=== PATIENT | female | born 1930 | race Caucasian/White ===

== ENCOUNTER 2017-04-19 23:33 | Emergency (ER) | payer MEDICARE ==
--- NOTE | 2017-04-20 00:24 | EDM.PDOC ---
ED HPI GENERAL MEDICAL PROBLEM - General Chief Complaint: General Stated Complaint: FELL IN SHOWER Time Seen by Provider: 04/20/17 00:22 Source of Information: Reports: Patient, Family, RN - History of Present Illness INITIAL COMMENTS - FREE TEXT/NARRATIVE: She slipped in the shower and slid down hitting her left chest this evening. Now she has pain left chest ; worse with a deep breath. Left Rib Pain Score (Numeric/FACES): 7 - Related Data Allergies Allergy/AdvReac Type Severity Reaction Status Date / Time No Known Allergies Allergy Verified 04/19/17 23:57 Home Meds: Home Meds . [No Known Home Meds] 04/19/17 [History] Past Medical History [id number] [employer] History: Reports: - Infectious Disease History Infectious Disease History: Reports: Chicken Pox, Shingles Social & Family History - Family History Family Medical History: Noncontributory - Tobacco Use Smoking Status *Q: Never Smoker - Recreational Drug Use Recreational Drug Use: No ED ROS GENERAL - Review of Systems Review Of Systems: See Below (no head injury; no LOC; no other injury; no fever) ED EXAM, GENERAL - Physical Exam Exam: See Below General Appearance: Alert, No Apparent Distress, Other (conversant) Head: Atraumatic Neck: Supple Respiratory/Chest: No Respiratory Distress, Lungs Clear, Normal Breath Sounds, Other (splinting left chest) Course - Vital Signs Last Recorded V/S: Last Vital Signs Temp 98.2 F 04/19/17 23:57 Pulse 74 04/19/17 23:57 Resp 20 04/19/17 23:57 BP 162/84 H 04/19/17 23:57 Pulse Ox 94 L 04/19/17 23:57 - Orders/Labs/Meds Orders: Active Orders 24 hr Category Date Time Status Ribs 2V w Chest Lt [CR] Stat Exams 04/20/17 00:26 Taken Acetaminophen/HYDROcodone [Palmetto 325-10 MG] Med 04/20/17 01:18 Once 1 tab PO ONETIME ONE Departure - Departure Time of Disposition: 01:19 Disposition: Home, Self-Care 01 Condition: Fair Clinical Impression: Ribs, multiple fractures - Discharge Information Referrals: PCP,None [Primary Care Provider] - Forms: ED Department Discharge Additional Instructions: follow up with a primary care provider within two weeks norco 5/325 1-2 po q 4 hours prn pain #40 may be sedating, constipating and habit forming do not use tylenol with norco use an incentive spirometer recheck for cough, fever or increasing shortness of breath. - My Orders Last 24 Hours: My Active Orders 04/20/17 00:26 Ribs 2V w Chest Lt [CR] Stat 04/20/17 01:18 Acetaminophen/HYDROcodone [Palmetto 325-10 MG] 1 tab PO ONETIME ONE - Assessment/Plan Last 24 Hours: My Active Orders 04/20/17 00:26 Ribs 2V w Chest Lt [CR] Stat 04/20/17 01:18 Acetaminophen/HYDROcodone [Palmetto 325-10 MG] 1 tab PO ONETIME ONE
[2017-04-20] MEDS ORDERED: Acetaminophen/HYDROcodone 325-10 MG Tab PO ONE (01:18)
[2017-04-20 03:12] VITALS: BP 151/81
--- NOTE | 2017-04-20 11:43 | CR ---
EXAM DATE: 04/19/17 PATIENT'S AGE: 86 Patient: BRYN CRUZ Facility: [place], [place] Site . Site : [id number] Study: XRay Chest RIBS [id number]/19/2017 12:51:12 AM Ordering Physician: Doctor Rubalcava Final Report: HISTORY: Fall. FINDINGS: PA chest and 2 views of the left ribs demonstrate scoliosis of the thoracic spine, convex to the right. Cardiac silhouette is acceptable size. Pulmonary vasculature is free cephalization. No consolidation or pleural effusion is seen. There is minimal linear density at the left base. There is fractures of the posterior left 7th and 8th ribs. Posterior left 9th, 10th and 11th ribs are not well seen due to extensive costochondral calcification. IMPRESSION: 1. Fractures of the posterior left 7th and 8th ribs with a small amount of atelectasis. No pneumothorax 2. Posterior left 9th, 10th and 11th ribs are not well seen because of extensive costochondral calcification. Dictated by Carol Ann Morrison MD @ 04/20/2017 1:01:57 AM Dictated by: Carol Ann Morrison MD @ 04/20/2017 01:02:19 (Electronic Signature) Report Signed by Proxy. KAYLYN
== END 2017-04-20 01:46 | disposition home or self-care (01) ==
LOC: MW.ED 23:33
DX: S22.42XA Multiple fractures of ribs, left side, initial encounter for closed fracture (principal); W18.2XXA Fall in (into) shower or empty bathtub, initial encounter
CPT/HCPCS: 71101; 99283; A9270